=== PATIENT | male | born 1950 | race Caucasian/White ===

== ENCOUNTER 2020-08-26 07:57 | Day surgery (SDC) | payer MEDICARE, BC ==
[2020-08-20 11:42] LABS: BASOPHILS % (AUTO) 1.1 % (0-1); EOSINOPHILS # (AUTO) 0.2 X10'3 (0-0.9); EOSINOPHILS % (AUTO) 3.7 % (0-6); LYMPHOCYTES # (AUTO) 1.1 X10'3 (1.1-4.8); MEAN CORPUSCULAR HEMOGLOBIN 31.7 PG (27.0-31.0); MEAN CORPUSCULAR VOLUME 93.4 FL (78-98); MEAN PLATELET VOLUME 8.5 FL (7.4-10.4); MONOCYTES # (AUTO) 0.4 X10'3 (0-0.9); MONOCYTES % (AUTO) 9.2 % (2-12); NEUTROPHILS # (AUTO) 2.8 X10'3 (1.8-7.7); PRE OP HEMATOCRIT 45.8 % (42.0-52.0); PRE OP HEMOGLOBIN 15.6 g/dL (14.0-17.9); PRE OP PLATELET COUNT 194 X10'3 (140-440); RED BLOOD COUNT 4.91 X10'6 (4.70-6.10); RED CELL DISTRIBUTION WIDTH 13.6 % (11.5-14.5)
[2020-08-20 11:51] LABS: PRE OP PROTIME 10.5 SECONDS (9.0-12.0)
[2020-08-20 11:53] LABS: ALBUMIN 3.8 G/DL (3.4-5.0); ALBUMIN/GLOBULIN RATIO 1.1 (1.1-1.5); ALKALINE PHOSPHATASE 93 IU/L (46-116); BLOOD UREA NITROGEN 19 MG/DL (7-18); CALCIUM 9.2 MG/DL (8.5-10.1); CHLORIDE 107 MMOL/L (99-107); CREATININE 1.12 MG/DL (0.60-1.10); PRE OP ALT 18 U/L (30-65); PRE OP ANION GAP 10 (8-16); PRE OP AST 9 U/L (10-37); PRE OP BILIRUB, TOTAL 0.7 MG/DL (0.0-1.0); PRE OP GLUCOSE 88 MG/DL (70-104); PRE OP POTASSIUM 4.4 MMOL/L (3.4-5.1); PRE OP SODIUM 142 MMOL/L (135-145); TOTAL CARBON DIOXIDE 25.3 MMOL/L (24-32); TOTAL PROTEIN 7.3 G/DL (6.4-8.2); eGFR 65 ML/MIN
[~2020-08-26] VITALS: Ht 182.9 cm; Wt 85.5 kg
[2020-08-26] VITALS (11 sets, daily range): BP systolic 105–128; BP diastolic 69–91
[~2020-08-26 07:57] MED LIST: FLUO-81 PO; LIDOcaine 1% W/epiNEPHrine 1:100,000 20ml vial ONE; LORA-268 PO; QUET50TA22 PO; cefTAZidime 1gm inj ONE; cocaine 4% topical solution 4ml bottle ONE; famotidine 20mg tablet PO ONE; mupirocin 2% ointment 22GM ONE; oxymetazoline 15 ML nasal spray NS ONE; oxymetazoline 15 ML nasal spray NS PRN; ringers solution, lacted 1,000 ML IV SCH
[2020-08-26] MEDS ORDERED: midazolam 1 mg/ML 2ml injection ONE (10:07)
[2020-08-26] MEDS ORDERED: propofol inj 20 ML IV ONE (10:07)
[2020-08-26] MEDS ORDERED: fentaNYL/PF 50MCG/1 ML 2ML syringe ONE (10:07)
[2020-08-26] MEDS ORDERED: ceFAZolin 1000mg inj ONE ×2 (10:15)
[2020-08-26] MEDS ORDERED: ondansetron/PF 4mg/2ml inj IV PRN (10:40)
[2020-08-26] MEDS ORDERED: proCHLORperazine 10 MG/2 ml inj IV PRN (10:40)
[2020-08-26] MEDS ORDERED: morphine 4 MG/ML inj SYRINge IV PRN (10:40)
[2020-08-26] MEDS ORDERED: ringers solution, lacted 1,000 ML IV SCH (10:40)
[2020-08-26] MEDS ORDERED: meperidine/PF 25mg/ml syringe IV PRN ×3 (10:40)
[2020-08-26] MEDS ORDERED: morphine 2 MG/ML inj. syringe IV PRN (10:40)
[2020-08-26] MEDS ORDERED: ondansetron/PF 4mg/2ml inj ONE (11:09)
--- NOTE | 2020-08-26 11:24 | NUR ---
Received from OR via BED, accompanied by Anesthesiologist DR VIGIL and report given by Anesthesiologist. PT VERY DROWSY, NO S/S OF DISTRESS/DISCOMFORT. KACIE Melara/PERLITA IN PLACE, CDI. Addendum: 08/26/20 at 1148 by Mariia Bernstein RN Amended: Links added.
[2020-08-26] MEDS ORDERED: salt irrigation nasal spray 45 ML SPRAY NS SCH (11:45)
[2020-08-26] MEDS ORDERED: mupirocin 2% ointment 22GM TP SCH (11:46)
--- NOTE | 2020-08-26 13:14 | NUR ---
[employer] D/CD AT 12:00, PT TOLERATED WELL, PT UP AND ABLE TO AMBULATE SAFELY, VOIDED, D/C INSTRUCTIONS GIVEN AND GONE OVER W/PT AND PTS WHO VERBALIZED UNDERSTANDING. PT D/CD TO HOME VIA W/C TO PRIVATE VEHICLE W/O INCIDENT. Addendum: 08/26/20 at 1334 by Mariia Bernstein RN Amended: Links added.
== END 2020-08-26 13:14 | disposition home or self-care (01) ==
LOC: PAS 07:57
PROVIDERS: ATTEND Otolaryngology
DX: J34.2 Deviated nasal septum (principal); J34.3 Hypertrophy of nasal turbinates; G43.809 Other migraine, not intractable, without status migrainosus; F41.9 Anxiety disorder, unspecified; M19.90 Unspecified osteoarthritis, unspecified site; Z87.442 Personal history of urinary calculi; Z79.01 Long term (current) use of anticoagulants; Z79.899 Other long term (current) drug therapy; Z98.890 Other specified postprocedural states; Z72.89 Other problems related to lifestyle; Z87.891 Personal history of nicotine dependence
CPT/HCPCS: 30140; 30520; 36415; 80053; 82948; 85025; 85576; 85610; 85730; 93005; A6402; C9250; J0690; J0713; J2250; J2405; J2704; J3010; J7040; A4618; A7000; J7120